=== PATIENT | female | born 1995 | race Caucasian/White ===

== ENCOUNTER 2017-05-25 07:30 | Inpatient (IN) | payer OTHER ==
[2017-05-25] MEDS ORDERED: DINOPROSTONE 10 MG VAGINAL SUPPOSITORY VG ONE (09:22)
[2017-05-25] MEDS ORDERED: DEXTROSE 5%-LACTATED RINGERS 1,000 ML IV SCH (09:30)
--- NOTE | 2017-05-25 09:34 | HP ---
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: No: Alzheimer's, CVA, Dementia, Migraine, Multiple Sclerosis, Peripheral Neuropathy, Parkinson's, Seizure, Syncope, TIA, Vertigo, Other Cardiovascular: No: AFIB, Aneurysm, Aortic Insufficiency, Aortic Stenosis, CAD, CHF, Deep Vein Thrombosis, HTN, Hyperlipdemia, NM, Mitral Insufficiency, Mitral Stenosis, Murmur, Pulmonary Hypertension, Other Pulmonary: No: Asthma, Bronchitis, Cancer, COPD, O2 Dependent, Pneumonia, Previously Intubated, Pulmonary Embolus, Pulmonary Fibrosis, Sleep Apnea, Other Gastrointestinal: No: Ascites, Cancer, Constipation, Crohn's Disease, Diverticulitis, Diverticulosis, Esophageal Varices, Gastritis, GERD, GI Bleed, Hemorrhoids, Hiatal Hernia, Inflamatory Bowel Disease, Irritable Bowel Disease, Pancreatitis, Peptic Ulcer Disease, Ulcerative Colitis, Other Hepatobiliary: No: Cirrhosis, Cholelithiasis, Cholecystitis, Choledocholithiasis , Hepatitis A, Hepatitis B, Hepatitis C, Other Renal/: No: Renal Failure, Renal Inusuff, BPH, Cancer, Hematuria, Hemodialysis , Neurogenic Bladder, Renal Calculi, UTI, Other Reproductive: No: Ectopic , Endometriosis, Fibroids, PID, Polycystic Ovary Syndrome, Postmenopausal, Other ...: 2 ...Para: 0 ...Induced : 1 Heme/Onc: Yes: Anemia Infectious Disease: No: AIDS, C-Diff, Herpes Zoster, HIV, MRSA, STD's, Tuberculosis, VREF, Other Psych: No: Addictions, Anxiety, Bipolar, Depression, Panic, Psychosis, Schizophrenia, Other Musculoskeletal: No: Bursitis, Chronic low back pain, Hemiparesis, Hemiplegia, Osteoarthritis, Paraplegia, Other Rheumatology: No: Fibromyalgia, Gout, Lupus, Rheumatoid Arthritis, Sarcoidosis, Vasculitis, Other ENT: No: Allergic Rhinitis, Sinusitis, Other Endocrine: No: Pageland's Disease, Peconic's Disease, Diabetes Insipidus, Diabetes Mellitus, Hyperparathyroidism, Hyperthyroidism, Hypothyroidism, Osteopenia, SIADH, Other Dermatology: No: Basal Cell, Cellulitis, Eczema, Melanoma, Psoriasis, Squamous Cell, Other - Past Surgical History Hx Myomectomy: No Hx Transabdominal Cerclage: No Additional Surgical History: Gastric Sleeve - Smoking History Have you smoked in the past 12 months: No - Alcohol/Substance Use Hx Alcohol Use: No History of Substance Use: reports: None - Social History Usual Living Arrangement: Yes: Alone ADL: Independent History of Recent Travel: No Home Medications - Allergies Allergies/Adverse Reactions: Allergies Allergy/AdvReac Type Severity Reaction Status Date / Time No Known Allergies Allergy Verified 05/25/17 09:36 Family Disease History - Family Disease History Family History: Unremarkable Review of Systems - Review of Systems Constitutional: reports: No Symptoms Eyes: reports: No Symptoms HENT: reports: No Symptoms Neck: reports: No Symptoms Cardiovascular: reports: No Symptoms Respiratory: reports: No Symptoms Gastrointestinal: reports: No Symptoms Genitourinary: reports: No Symptoms Breasts: reports: No Symptoms Reported Musculoskeletal: reports: No Symptoms Integumentary: reports: No Symptoms Neurological: reports: No Symptoms Endocrine: reports: No Symptoms Hematology/Lymphatic: reports: No Symptoms Psychiatric: reports: No Symptoms Physical Exam - Maternity Constitutional: Yes: Well Nourished, No Distress, Calm Eyes: Yes: WNL, Conjunctiva Clear, EOM Intact HENT: Yes: WNL, Atraumatic, Normocephalic Neck: Yes: WNL, Supple, Trachea Midline Cardiovascular: Yes: WNL, Regular Rate and Rhythm Lungs: Clear to auscultation, Normal air movement - Abdominal Exam/OB Fundal Height: 40 Number of Fetuses: Single Presentation: Vertex Contractions: No Heart Rate (range): 130 Heart Rate Location: Midline Category: I Accelerations: Non-Uniform Decelerations: None - Vaginal Exam/OB Vaginal Bleediing: No Speculum Exam: No Dilatation (cm): 0 Effacement (%): 30 Amniotic Membrane Status: Intact Presentation: Vertex/Position Station: -4 - Physical Exam Musculoskeletal: Yes: WNL Extremities: Yes: WNL Edema: No Integumentary: Yes: WNL Deep Tendon Reflex Grade: Normal +2 ...Motor Strength: WNL Psychiatric: Yes: WNL, Alert, Oriented Hemorrhage Risk Assessment - Risk Factors Medium Risk Factors: Yes: None High Risk Factors: Yes: None Risk Score: 1 Risk Level: Medium Risk Imaging - Results Ultrasound: Report Reviewed Assessment/Plan 21yo P0 with at EGA 40w5d and noted to have oligohydramnios (TRUPTI 4.5cn ) adnitted for labor indx. Fetus with Category I tracing. We had a long discussion re: risks, benefits, and alternatives of labor induction. I explained the options of expectant management awaiting spontaneous labor, induction of labor, and elective section. The risks of uterine tachysystole, distress, uterine rupture, need for emergency C/S, hemorrhage, infection, scarring, etc. were discussed. We also discussed the risks of meconium aspiration, shoulder dystocia, and anesthesia options.
[2017-05-25 10:14] LABS: BASOPHIL 0.3 % (0-2.0); EOSINOPHIL 0.3 % (0-4.5); MCH 30.4 pg (25.7-33.7); MCHC 33.4 g/dl (32.0-36.0); MEAN CELL VOLUME 90.9 fl (80-96); NEUTROPHILS 72.2 % (42.8-82.8); PLATELET COUNT 186 K/MM3 (134-434); RDW 18.9 % (11.6-15.6); WHITE BLOOD COUNT 11.7 K/mm3 (4.0-10.0)
[2017-05-25 10:50] LABS: INR 0.94 (0.82-1.09); PROTHROMBIN TIME (PATIENT) 10.6 SEC (9.98-11.88)
[2017-05-25 10:53] LABS: ACTIVATED PTT 26.3 SECONDS (26.9-34.4)
[2017-05-25 11:02] LABS: ANION GAP 10 (8-16); CALCIUM 8.3 mg/dL (8.5-10.1); CO2 20 mmol/L (21-32); CREATININE 0.7 mg/dL (0.55-1.02); GLUCOSE,RANDOM 77 mg/dL (74-106)
[2017-05-25 12:11] VITALS: BMI 35.9
[2017-05-25] MEDS ORDERED: TUBERCULIN PPD 5 TU/0.1ML SYRINGE (IN PATIENT USE ONLY) ID ONE (20:15)
[2017-05-26] MEDS ORDERED: OXYTOCIN 15 UNITS/ LR 250 ML 15 UNIT/250 ML INFUS.BAG IVPB SCH (00:30)
--- NOTE | 2017-05-26 09:06 | PN ---
Ante-Partal Exam - Subjective Subjective: No complaints. No contractions. Vital Signs: Vital Signs Temperature 98.2 F 05/26/17 06:00 Pulse Rate 74 05/26/17 06:00 Respiratory Rate 20 05/26/17 06:00 Blood Pressure 119/78 05/26/17 06:00 O2 Sat by Pulse Oximetry (%) Bleeding: No Headache: No Visual changes: No Right upper quadrant pain: No Pain (scale 1-10): 0 - Contractions Contractions: No - Exam during Labor Heart Rate: 130 Variability: Moderate Heart Rate Location: Midline Category: I Monitor Accelerations: Present Monitor Decelerations: None Exam: Vaginal Dilatation (cm): 1 Effacement (%): 50 Amniotic Membrane Status: Intact Presentation: Vertex Station: -4 - Intrapartum Hemorrhage Risk Medium Risk Factors: None High Risk Factors: None Risk Score: 0 Risk Level: Low Risk - Assessment/Plan Assessment/Plan: 21yo P0 with post term and oligohydramnios. Pt with pitocin up to 16mU and w/o any contractons. I discussed repeating Cervidil, Cytotec, Dixon balloon induction and the pt refused all indx options. She requested a C/S delivery. I explained the risks of C/S but the pt insisted. Fetus with Category I tracing.
[2017-05-26] MEDS ORDERED: ELECTROLYTE-148 SOLN 500 ML IV SCH ×2 (12:15→12:45)
[2017-05-26] MEDS ORDERED: CITRIC ACID/SODIUM CITRATE 30 ML UNIT-DOSE CUP PO ONE (12:15)
[2017-05-26] MEDS ORDERED: ONDANSETRON 4 MG/2 ML VIAL IVPUSH PRN (15:03)
[2017-05-26] MEDS ORDERED: IBUPROFEN 600 MG TABLET (FP) PO PRN (15:03)
[2017-05-26] MEDS ORDERED: METHYLERGONOVINE MALEATE 0.2 MG/1 ML AMP IM PRN (16:01)
[2017-05-26] MEDS ORDERED: oxyCODONE HCL 5 MG TABLET PO PRN ×2 (16:01)
[2017-05-26] MEDS ORDERED: OXYTOCIN 20 UNITS in 0.9% NS 20 UNIT/1,000 ML INFUS.BAG IV SCH (16:15)
--- NOTE | 2017-05-26 17:00 | OP ---
Operative Note - Note: Operative Date: 05/26/17 Pre-Operative Diagnosis: post term at 40w5d. Oligohydramnios. Failed induction of labor. Maternal obesity Operation: Primary LT C/S Findings: Live baby boy in vtx oresentation, no meconium, nuchal cord x 1, 9/9, normal uterus/tubes/ovaries Post-Operative Diagnosis: Same as Pre-op Surgeon: Madi Encinas Glass Inspector: Mariangel Gonzalez Anesthesiologist/COVER MACHINE OPERATOR: Ernesto Curry Anesthesia: Spinal Specimens Removed: Placenta Estimated Blood Loss (mls): 500 Drains & Tubes with Location: Dixon cath Drains, Volume Out (mls): 150 Blood Volume Replaced (mls): 0 Fluid Volume Replaced (mls): 1,600 Operative Report Dictated: Yes
--- NOTE | 2017-05-26 19:56 | OP ---
DATE OF OPERATION: 05/26/2017 PREOPERATIVE DIAGNOSIS: Post-term with estimated gestational age of 40 weeks and 5 days, oligohydramnios, failed induction of labor, maternal obesity complicating , bariatric surgery history complicating . POSTOPERATIVE DIAGNOSIS: Post-term with estimated gestational age of 40 weeks and 5 days, oligohydramnios, failed induction of labor, maternal obesity complicating , bariatric surgery history complicating . PROCEDURE: Primary low transverse section via Pfannenstiel skin incision. SURGEON: Madi Encinas M.D. CONDUCTOR FREIGHT: Mariangel Gonzalez M.D. ANESTHESIOLOGIST: Ernesto Curry M.D. ANESTHESIA: Spinal. INTRAVENOUS FLUIDS: 1600 mL. ESTIMATED BLOOD LOSS: 500 mL. URINE OUTPUT: 150 mL of clear urine at the end of the procedure. PATHOLOGY: Placenta. COMPLICATIONS: None. FINDINGS: Live baby boy in vertex presentation, nuchal cord once, released without difficulty. Normal uterus, fallopian tubes and ovaries. PROCEDURE: The patient was met preoperatively. Risks, benefits, and alternatives of surgery were discussed in detail. All questions were answered. The patient was then brought to the OR with the IV running. She was placed on the surgical table in a sitting position. The spinal anesthesia was achieved without difficulty. The patient was then placed on a surgical table in the supine position with leftward tilt. A timeout procedure was conducted as per protocol. She was prepped and draped in the usual sterile fashion. A Dixon catheter was inserted and left to drain to gravity. The surgeons then proceeded with the operation. A Pfannenstiel skin incision was made with the knife approximately 2 cm above the pubic symphysis. The incision was carried down to the level of the fascia. The fascia was incised in the midline. The incision was extended bilaterally using Hussein scissors. The fascia was dissected away from the rectus muscles superiorly and inferiorly. The rectus muscles were in the midline. The peritoneum was identified and entered sharply. The peritoneal incision was extended superiorly and inferiorly. The bladder peritoneum was then dissected away from the lower uterine segment using sharp dissection. The bladder was reflected downwards. The uterus was incised transversely in the lower uterine segment. The uterine incision was extended bilaterally using bandage scissors. The baby was delivered from vertex presentation without complication. A nuchal cord was released without difficulty. The umbilical cord was clamped and cut. The baby was crying spontaneously and was handed to the waiting cardiac rehab nurse. The placenta was delivered manually and without complications. The uterus was cleared of all clots and debris. The uterine incision was repaired using 0 Biosyn suture with a running, locking stitch. The uterine incision was then imbricated using a 0 Biosyn suture with good hemostasis and approximation. The bladder peritoneum was approximated using a 0 Biosyn suture. The operative site was irrigated using copious amounts of normal saline. Once the saline was aspirated, good hemostasis was confirmed. The abdominal peritoneum was closed using a 2-0 chromic suture. The rectus muscles were approximated in the midline using several interrupted 2-0 chromic suture. The fascia was closed using a 0 Vicryl suture with good approximation and hemostasis. The subcutaneous adipose tissues were approximated to eliminate space. The skin was closed using a 3-0 Vicryl suture in a subcutaneous stitch. The patient tolerated procedure well and was transferred to recovery room in stable condition. Sponge, lap, and instrument counts were correct x2. Kay [id number]
--- NOTE | 2017-05-27 07:28 | PN ---
Post Progress Note - Subjective Subjective: Patient without acute complaints. Currently NPO No voiding, dior in place No ambulation or flatus yet. Denies fevers or chills. Pain well controlled. Post Day: 1 Type of Delivery: Primary C/S Vital Signs: Vital Signs Temperature 98.3 F 05/27/17 06:00 Pulse Rate 73 05/27/17 06:00 Respiratory Rate 18 05/27/17 06:00 Blood Pressure 110/59 05/27/17 06:00 O2 Sat by Pulse Oximetry (%) 100 05/26/17 17:10 Breast Exam: Yes: Soft Uterus: Yes: Fundus Firm, Fundus below umbilicus Incision: Yes: Dressing dry and intact Abdomen/GI: Yes: Abdomen soft, Tender (mild valeria incisional tenderness), Passing flatus, Tolerating PO Lochia: Yes: Serosa Lochia, amount: Moderate Extremities: Yes: Calves non-tender. No: Edema - Labs Labs: CBC WBC 11.7 K/mm3 (4.0-10.0) H 05/25/17 09:50 RBC 3.46 M/mm3 (3.60-5.2) L 05/25/17 09:50 Hgb 10.5 GM/dL (10.7-15.3) L 05/25/17 09:50 Hct 31.4 % (32.4-45.2) L 05/25/17 09:50 MCV 90.9 fl (80-96) 05/25/17 09:50 MCH 30.4 pg (25.7-33.7) 05/25/17 09:50 MCHC 33.4 g/dl (32.0-36.0) 05/25/17 09:50 RDW 18.9 % (11.6-15.6) H 05/25/17 09:50 Plt Count 186 K/MM3 (134-434) 05/25/17 09:50 MPV 9.0 fl (7.5-11.1) 05/25/17 09:50 Neutrophils % 72.2 % (42.8-82.8) 05/25/17 09:50 Lymphocytes % 19.6 % (8-40) 05/25/17 09:50 Monocytes % 7.6 % (3.8-10.2) 05/25/17 09:50 Eosinophils % 0.3 % (0-4.5) 05/25/17 09:50 Basophils % 0.3 % (0-2.0) 05/25/17 09:50 Assessment/Plan 21 yo POD # 1 s/p primary CD, afebrile, vital signs stable, doing well 1. Continue routine postoperative care. 2. Follow up AM CBC 3. Rh positive status, no rhogam indicated. 4. Encourage ambulation and incentive spirometer use 5. Continue oral pain medication 6. Anticipate discharge home postoperative day #3 or #4
[2017-05-27] MEDS ORDERED: diphenhydrAMINE HCL 25 MG CAPSULE (FP) PO PRN (07:53)
[2017-05-27 08:20] LABS: BASOPHIL 0.2 % (0-2.0); EOSINOPHIL 0.6 % (0-4.5); MCH 30.9 pg (25.7-33.7); MCHC 33.6 g/dl (32.0-36.0); MEAN CELL VOLUME 91.9 fl (80-96); MEAN PLT VOLUME 9.2 fl (7.5-11.1); NEUTROPHILS 77.2 % (42.8-82.8); PLATELET COUNT 159 K/MM3 (134-434); WHITE BLOOD COUNT 12.1 K/mm3 (4.0-10.0)
[2017-05-27] MEDS: ACETAMINOPHEN 325 MG TABLET (FP) PO PRN ×2 (09:15→22:27)
[2017-05-27] MEDS: IBUPROFEN 600 MG TABLET (FP) PO PRN ×2 (09:15→22:26)
[2017-05-27] MEDS: SIMETHICONE 80 MG TAB.CHEW (FP) PO PRN ×2 (09:16→22:25)
[2017-05-27] MEDS ORDERED: BISACODYL 10 MG SUPP.RECT RC PRN (16:02)
--- NOTE | 2017-05-28 07:05 | PN ---
Progress Note, Physician Chief Complaint: S/P C SECTION History of Present Illness: POST OP DAY ONE, UNDER SPINAL ANESTHESIA WITH DURAMORPH FOR POST OP PAIN CONTROL - Current Medication List Current Medications: Active Medications Acetaminophen (Tylenol -) 650 mg PO Q4H PRN PRN Reason: FEVER OR PAIN Last Admin: 05/27/17 22:27 Dose: 650 mg Bisacodyl (Dulcolax Suppository -) 10 mg RC PRN PRN PRN Reason: CONSTIPATION Diphenhydramine HCl (Benadryl Injection -) 25 mg IVPUSH Q4H PRN PRN Reason: Pruritis Last Admin: 05/27/17 06:54 Dose: 25 mg Diphenhydramine HCl (Benadryl -) 25 mg PO Q6H PRN PRN Reason: FOR ITCHING Last Admin: 05/27/17 22:25 Dose: 25 mg Oxytocin/Sodium Chloride (Normal Saline+20 Units Oxytocin -) 20 unit in 1,000 mls @ 125 mls/hr IV ASDIR DEN Last Admin: 05/26/17 17:15 Dose: 125 mls/hr Ibuprofen (Motrin -) 600 mg PO Q4H PRN PRN Reason: PAIN Last Admin: 05/27/17 22:26 Dose: 600 mg Methylergonovine Maleate (Methergine Injection -) 0.2 mg IM Q4H PRN PRN Reason: Excessive Bleeding (L&D) Ondansetron HCl (Zofran Injection) 4 mg IVPUSH Q4H PRN PRN Reason: NAUSEA Oxycodone HCl (Roxicodone -) 5 mg PO Q4H PRN PRN Reason: PAIN LEVEL 1-5 Oxycodone HCl (Roxicodone -) 10 mg PO Q4H PRN PRN Reason: PAIN LEVEL 6-10 Simethicone (Mylicon -) 80 mg PO Q4H PRN PRN Reason: GAS Last Admin: 05/27/17 22:25 Dose: 80 mg - Objective Vital Signs: Vital Signs Temperature 99.0 F 05/27/17 22:00 Pulse Rate 80 05/27/17 22:00 Respiratory Rate 18 05/27/17 22:00 Blood Pressure 123/73 05/27/17 22:00 O2 Sat by Pulse Oximetry (%) 100 05/26/17 17:10 Constitutional: Yes: Well Nourished Cardiovascular: Yes: WNL Respiratory: Yes: WNL Gastrointestinal: Yes: WNL Neurological: Yes: WNL Labs: CBC, BMP 05/27/17 06:55 05/25/17 09:50 INR, PTT INR 0.94 (0.82-1.09) 05/25/17 09:50 Assessment/Plan NO ADVERSE REACTION TO ANESTHETIC, NO HEADACHE, PAIN CONTROLLED, NO FURTHER INTERVENTION NEEDED. DEPT OF ANESTHESIA WILL SIGN OFF CARE AT THIS TIME
--- NOTE | 2017-05-28 08:21 | PN ---
Progress Note (short form) - Note Progress Note: pod 2 c/o of low abdominal cramps, no excess vaginal bleeding ,passing gas CBC, BMP 05/27/17 06:55 05/25/17 09:50 Last Vital Signs Temp Pulse Resp BP Pulse Ox 99.0 F 80 18 123/73 100 05/27/17 22:00 05/27/17 22:00 05/27/17 22:00 05/27/17 22:00 05/26/17 17:10 abdomen soft, no distension, no cva incision dry. clean no calf tenderness plan ambulate , pain management
[2017-05-29 08:19] LABS: BASOPHIL 0.3 % (0-2.0); EOSINOPHIL 1.8 % (0-4.5); MCH 31.2 pg (25.7-33.7); MCHC 33.6 g/dl (32.0-36.0); MEAN CELL VOLUME 92.8 fl (80-96); NEUTROPHILS 62.9 % (42.8-82.8); PLATELET COUNT 183 K/MM3 (134-434); WHITE BLOOD COUNT 10.1 K/mm3 (4.0-10.0)
[2017-05-29 09:37] VITALS: BP 120/76; PULSE 66; TEMP 98.2
--- NOTE | 2017-05-29 10:26 | DS ---
Physical Exam-SUPERVISOR ROLLING ROOM Vital Signs: Vital Signs Temperature 98.2 F 05/29/17 09:36 Pulse Rate 66 05/29/17 09:36 Respiratory Rate 20 05/29/17 09:36 Blood Pressure 120/76 05/29/17 09:36 O2 Sat by Pulse Oximetry (%) 100 05/26/17 17:10 Constitutional: Yes: Well Nourished, No Distress, Calm Eyes: Yes: WNL, Conjunctiva Clear, EOM Intact HENT: Yes: WNL, Atraumatic, Normocephalic Neck: Yes: WNL, Supple, Trachea Midline Cardiovascular: Yes: WNL, Regular Rate and Rhythm Respiratory: Yes: WNL, Regular, CTA Bilaterally Gastrointestinal: Yes: WNL ...Rectal Exam: Yes: WNL Renal/: Yes: WNL ....Post : Yes: Uterus firm, Uterus non-tender Breast(s): Yes: WNL Musculoskeletal: Yes: WNL Extremities: Yes: WNL Edema: No Integumentary: Yes: WNL Wound/Incision: Yes: Clean/Dry, Well Approximated, Sutures Intact Neurological: Yes: WNL, Alert, Oriented ...Motor Strength: WNL Psychiatric: Yes: WNL, Alert, Oriented Labs: CBC, BMP 05/29/17 07:00 05/25/17 09:50 Delivery - Delivery Section: Primary, Low Flap Transverse Type of Anesthesia: Spinal Episiotomy/Laceration: None EBL (cc): 500 Delivery, Single - Stages of Labor Date of Delivery: 05/26/17 Time of Delivery: 15:23 Time Placenta Delivered: 15:24 Placenta: Yes: Expressed - Condition of Disk Recoater/Car Trimmer Present: Yes Name: Radhames Burt Gender: Male Weight: 8 lb Position: Left, OT Total Hours ROM (Hrs/Mins): 2MIN - 1 Minute Total Score: 9 5 Minutes Total Score: 9 - [place] Feeding Plan Initial Plan: Elected not to breastfeed exclusively throughout hospitalization Discharge Summary Reason For Visit: INDUCTION OF LABOR Procedures: Principal: LST C/S Condition: Good - Instructions Diet, Activity, Other Instructions: regular diet, no intercourse, follow up office 1 week Referrals: Madi Encinas MD [Staff Physician] - Disposition: HOME - Home Medications Comprehensive Discharge Medication List: Ambulatory Orders Pnv95/Ferrous Fumarate/FA [ Vitamin Tablet] 1 each PO DAILY 05/25/17 Ibuprofen [Motrin -] 600 mg PO TID #90 tablet 05/27/17
--- NOTE | 2017-06-02 16:07 | PATH ---
Surgical Pathology Report Patient Name: VY SOTO [facility]. Rec. 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 Specimen(s) Received PLACENTA Clinical History , 40.6 weeks Abnormal AFP with normal ultrasound screen, obesity, oligohydramnios, abnormal 1 hour GCT, 3 hour GTT not tolerated Gastric sleeve 2012 Final Diagnosis PLACENTA, SECTION: 448 g THIRD TRIMESTER PLACENTA WITH TRIVASCULAR UMBILICAL CORD AND UNREMARKABLE MEMBRANES. Electronically Signed Indigo Taylor M.D. Gross Description The specimen is received fresh labeled placenta and is a 448 gram, 20.5 x 14.0 x 2.8 cm. placenta with attached membranes and umbilical cord. The attached membranes are ruelas, translucent with focal opacities and insert marginally. The umbilical cord measures 68 cm. in length and averages 0.9 cm. in diameter. The cord inserts eccentrically, 2 cm. to the nearest margin. No true knots or strictures are identified. Cut surface of the umbilical cord reveals 3 vessels. The surface is alejandro blue with moderate fibrin deposition and appropriate caliber vessels. The maternal surface is red-brown with focal defects. Sectioning reveals red-brown, spongy parenchyma. No lesions are identified. Composite Boat Builder sections are submitted in three cassettes as follows: 1- membrane rolls and umbilical cord; 2-3- full thickness sections of placenta. 06/01/2017 [facility]06/01/2017
== END 2017-05-29 12:30 | disposition home or self-care (01) | DRG 540 ==
LOC: JLDR 07:30 → J3W 05-26 17:33
PROVIDERS: ADMIT Obstetrics & Gynecology; ATTEND Obstetrics & Gynecology
PROC: 10D00Z1 Extraction of Products of Conception, Low, Open Approach (ICD-10-PCS; principal; 2017-05-26)
DX: O48.0 Post-term pregnancy (principal); O41.03X0 Oligohydramnios, third trimester, not applicable or unspecified; O99.843 Bariatric surgery status complicating pregnancy, third trimester; O62.0 Primary inadequate contractions; O99.214 Obesity complicating childbirth; E66.8 Other obesity; Z68.36 Body mass index [BMI] 36.0-36.9, adult; Z37.0 Single live birth; Z3A.40 40 weeks gestation of pregnancy
CPT/HCPCS: 36415; 80048; 85025; 85610; 85730; 86593; 86850; 86900; 86901; 88307-TC

== ENCOUNTER 2020-07-14 01:48 | Emergency (ER) | payer OTHER ==
[2020-07-14] MEDS ORDERED: SULFAMETHOXAZOLE/TRIMETHOPRIM 800MG/160MG D.S. TABLET PO ONE (01:52)
[2020-07-14] MEDS ORDERED: PHENAZOPYRIDINE HCL 100 MG TABLET (FP) PO ONE (01:53)
[2020-07-14] MEDS ORDERED: IBUPROFEN 600 MG TABLET (FP) PO ONE ×2 (01:53→01:57)
[2020-07-14] MEDS ORDERED: PHENAZOPYRIDINE HCL 100 MG TABLET (FP) ONE (01:57)
[2020-07-14] MEDS ORDERED: SULFAMETHOXAZOLE/TRIMETHOPRIM 800MG/160MG D.S. TABLET ONE (01:57)
[2020-07-14 02:04] VITALS: BP 121/77; PULSE 100; TEMP 98.1; BMI 33.6
[2020-07-14 02:32] LABS: EPI CELLS 18 /uL (0-25.1); HYALINE CASTS 2 /uL (0-3.1); URINE APPEARANCE CLOUDY; URINE BACTERIA 185 /uL (0-1359); URINE BILIRUBIN NEGATIVE (NEGATIVE); URINE COLOR YELLOW; URINE GLUCOSE (UA) NEGATIVE (NEGATIVE); URINE KETONE NEGATIVE (NEGATIVE); URINE LEUK ESTERASE 2+ (NEGATIVE); URINE NITRITE NEGATIVE (NEGATIVE); URINE PROTEIN TRACE (NEGATIVE); URINE RBC 48 /uL (0-23.9); URINE UROBILINOGEN 0.2 mg/dL (0.2-1.0); URINE WBC 697 /uL (0-25.8)
== END 2020-07-14 02:07 | disposition home or self-care (01) ==
LOC: FER 01:48
DX: N30.00 Acute cystitis without hematuria (principal)
CPT/HCPCS: 81003; 87077; 87086; 99284-25

== ENCOUNTER 2021-01-22 23:51 | Emergency (ER) | payer OTHER ==
[2021-01-22 23:56] VITALS: BP 110/63; PULSE 69; TEMP 98.8; BMI 35.4
[2021-01-23 00:31] LABS: EPI CELLS 21 /uL (0-25.1); HYALINE CASTS 1 /uL (0-3.1); URINE APPEARANCE CLOUDY; URINE BACTERIA 668 /uL (0-1359); URINE BILIRUBIN NEGATIVE (NEGATIVE); URINE COLOR DK YELLOW; URINE GLUCOSE (UA) NEGATIVE (NEGATIVE); URINE KETONE NEGATIVE (NEGATIVE); URINE LEUK ESTERASE 2+ (NEGATIVE); URINE NITRITE NEGATIVE (NEGATIVE); URINE PROTEIN NEGATIVE (NEGATIVE); URINE RBC 88 /uL (0-23.9); URINE UROBILINOGEN 0.2 mg/dL (0.2-1.0); URINE WBC 157 /uL (0-25.8)
[2021-01-23] MEDS ORDERED: PHENAZOPYRIDINE HCL 100 MG TABLET (FP) PO ONE (00:43)
[2021-01-23] MEDS ORDERED: NITROFURANTOIN MACROCRYSTAL 50 MG CAPSULE (FP) PO SCH (00:45)
[2021-01-23] MEDS ORDERED: NITROFURANTOIN MACROCRYSTAL 50 MG CAPSULE (FP) ONE (00:47)
[2021-01-23] MEDS ORDERED: PHENAZOPYRIDINE HCL 100 MG TABLET (FP) ONE (00:47)
== END 2021-01-23 00:58 | disposition home or self-care (01) ==
LOC: FER 23:51
DX: N30.90 Cystitis, unspecified without hematuria (principal)
CPT/HCPCS: 81003; 87086; 99283-25

== ENCOUNTER 2021-02-17 22:28 | Emergency (ER) | payer OTHER ==
[2021-02-17 22:45] VITALS: BP 123/78; PULSE 78; TEMP 98.1; BMI 35.4
[2021-02-17 22:50] LABS: HCG,QUALITATIVE URINE Negative
[2021-02-17] MEDS ORDERED: CIPROFLOXACIN 500 MG TABLET (RESTRICTED TO ID) PO ONE (22:55)
[2021-02-17] MEDS ORDERED: CIPROFLOXACIN 250 MG TABLET (RESTRICTED TO ID) PO ONE (22:56)
[2021-02-17 22:57] LABS: EPITHELIAL CELLS MODERATE /hpf
== END 2021-02-17 23:10 | disposition home or self-care (01) ==
LOC: FER 22:28
DX: N39.0 Urinary tract infection, site not specified (principal)
CPT/HCPCS: 81003; 81015; 84703; 87086; 99283-25

== ENCOUNTER 2021-04-28 09:19 | Emergency (ER) | payer OTHER ==
[2021-04-28 09:33] VITALS: BP 115/67; PULSE 78; TEMP 98.8; BMI 35.4
[2021-04-28 09:58] LABS: HCG,QUALITATIVE URINE Negative
[2021-04-28] MEDS ORDERED: SULFAMETHOXAZOLE/TRIMETHOPRIM 800MG/160MG D.S. TABLET PO ONE (10:08)
[2021-04-28] MEDS ORDERED: SULFAMETHOXAZOLE/TRIMETHOPRIM 800MG/160MG D.S. TABLET ONE (10:11)
[2021-04-28 10:36] LABS: EPITHELIAL CELLS FEW /hpf
== END 2021-04-28 10:12 | disposition home or self-care (01) ==
LOC: FER 09:19
DX: N30.00 Acute cystitis without hematuria (principal)
CPT/HCPCS: 81003; 81015; 84703; 87086; 99283-25

== ENCOUNTER 2022-05-14 20:39 | Emergency (ER) | payer OTHER ==
[2022-05-14 20:55] VITALS: BP 113/56; PULSE 80; RESP 16; TEMP 98.2; BMI 32.8
[2022-05-14 21:26] LABS: HCG,QUALITATIVE URINE Negative
== END 2022-05-14 21:37 | disposition home or self-care (01) ==
LOC: FER 20:39
DX: R42 Dizziness and giddiness (principal)
CPT/HCPCS: 81003; 82962; 84703; 99283-25

== ENCOUNTER 2023-08-25 19:30 | Emergency (ER) | payer OTHER ==
[2023-08-25 19:48] VITALS: BP 118/78; PULSE 86; RESP 16; TEMP 97.8; BMI 33.5
[2023-08-25] MEDS ORDERED: KETOROLAC TROMETHAMINE 60 MG/2 ML VIAL ONE (19:53)
[2023-08-25] MEDS ORDERED: predniSONE 20 MG TABLET (UD) ONE (19:53)
[2023-08-25] MEDS: KETOROLAC TROMETHAMINE 60 MG/2 ML VIAL IM ONE (19:56)
[2023-08-25] MEDS: predniSONE 20 MG TABLET (UD) PO ONE (19:57)
[2023-08-25 20:10] LABS: HCG,QUALITATIVE URINE Negative
== END 2023-08-25 20:16 | disposition home or self-care (01) ==
LOC: FER 19:30
PROC: 3E0233Z Introduction of Anti-inflammatory into Muscle, Percutaneous Approach (ICD-10-PCS; principal; 2023-08-25)
DX: M54.41 Lumbago with sciatica, right side (principal)
CPT/HCPCS: 81003; 81015; 84703; 99284-25

== ENCOUNTER 2024-04-15 16:56 | Emergency (ER) | payer OTHER ==
[2024-04-15 17:10] VITALS: BP 125/82; PULSE 111; RESP 18; TEMP 98.1; BMI 35.4
[2024-04-15] MEDS ORDERED: TETANUS AND DIPHTHERIA TOXOID 0.5 ML DISP.SYRIN IM ONE (18:23)
[2024-04-15] MEDS: DIPHTH,PERTUSS(ACELL),TET 0.5 ML DISP.SYRIN IM ONE (18:37)
== END 2024-04-15 18:47 | disposition home or self-care (01) ==
LOC: FER 16:56
PROC: 0HQ0XZZ Repair Scalp Skin, External Approach (ICD-10-PCS; principal; 2024-04-15)
PROC: 3E0234Z Introduction of Serum, Toxoid and Vaccine into Muscle, Percutaneous Approach (ICD-10-PCS; 2024-04-15)
DX: S01.01XA Laceration without foreign body of scalp, initial encounter (principal); Y04.8XXA Assault by other bodily force, initial encounter; W26.8XXA Contact with other sharp object(s), not elsewhere classified, initial encounter; Z23 Encounter for immunization
CPT/HCPCS: 12001-25; 90471; 90715; 99283-25

== ENCOUNTER 2024-04-25 09:55 | Emergency (ER) | payer OTHER ==
[2024-04-25 10:37] VITALS: BP 110/81; PULSE 73; RESP 20; TEMP 98.4; BMI 34.7
== END 2024-04-25 11:23 | disposition home or self-care (01) ==
LOC: FER 09:55
DX: Z48.02 Encounter for removal of sutures (principal)
CPT/HCPCS: 99281-25